=== PATIENT | male | born 1970 | race African-American/Black ===

== ENCOUNTER 2021-03-04 10:15 | Emergency (ER) | payer OTHER, SELFPAY ==
--- NOTE | ~2021-03-04 | XR_ITS ---
EXAMINATION: XR CHEST CLINICAL INFORMATION: Shortness of breath. History of PE. COMPARISON: No similar priors. TECHNIQUE: 2 views of the chest were obtained. FINDINGS: Normal appearance of the cardiomediastinal silhouette. Low lung volumes without focal airspace opacities, pleural effusions or pneumothorax. No acute osseous findings. The visualized upper abdomen is within normal limits. XR/XR chest 2V IMPRESSION: No acute cardiopulmonary findings.
--- NOTE | ~2021-03-04 | US_ITS ---
EXAMINATION: US VENOUS ULTRASOUND WITH DOPPLER LOWER EXTREMITY, RIGHT CLINICAL INFORMATION: History of cancer with right lower extremity edema and pain. COMPARISON: None. TECHNIQUE: Ultrasound of the deep veins is performed from the hip to the calf with compression sonography and color and pulse Doppler assessment. Spectral analysis with color-flow imaging is performed. FINDINGS: There is normal venous compression and respiratory variation and augmented flow. The visualized common femoral vein, superficial femoral vein, profunda femoral vein, popliteal vein, and the trifurcation region shows no evidence of deep venous thrombosis. There is no significant popliteal fossa cyst. If the patient's symptoms persist, followup ultrasound in 5 days 7 days might be of value to exclude proximal propagation from a non-visualized calf vein. US/US venous duplex LE RT IMPRESSION: No DVT demonstrated in the right lower extremity.
--- NOTE | ~2021-03-04 | CT_ITS ---
EXAMINATION: CT HEAD WITHOUT CONTRAST CT NECK WITHOUT CONTRAST CLINICAL INFORMATION: History of carcinoma. Tongue lesion. Difficulty swallowing. COMPARISON: No relevant prior imaging. TECHNIQUE: Packager Hand images were obtained. CT imaging of the head and neck was performed without contrast. Data was reformatted into multiplanar images at the acquisition workstation. This CT examination was performed using dose optimization techniques as appropriate, including one or more of the following: Automated exposure control, iterative reconstruction, and adjustment of technique factors (mA and/or kVp) according to patient size (this includes techniques or standardized protocols for targeted exams where dose is matched to indication/reason for exam). DLP: 1785 mGy-cm. (Including abdomen and pelvis) FINDINGS: Head: There is no acute intracranial hemorrhage or abnormal extra-axial collection. No intracranial mass effect or midline shift. Lateral and third ventricles are normal. No hydrocephalus. Conde-white matter differentiation is preserved and there is no evidence of acute territorial infarct. The calvarium and skull base are intact. Mastoid air cells and middle ear cavities are well aerated. Neck: The diagnostic accuracy of this component of the examination is limited due to the absence of intravenous contrast. There are no pathologically enlarged cervical lymph nodes. No mediastinal or axillary adenopathy is visualized within the [id number] of this examination. Pharyngeal mucosal spaces are symmetric. Parapharyngeal and retromaxillary fat is preserved. Oil Pumper spaces are normal. The parotid and submandibular glands are normal. The tongue base and epiglottis are normal. Preepiglottic fat is preserved. Glottic and subglottic airways are patent. The thyroid gland is normal and the remainder of the visualized visceral soft tissues are normal. Lung apices are clear. Aortic arch apex is unremarkable. Carotid spaces are unremarkable. There is no acute osseous finding. There is a well marginated expansile cystic lesion at the posterior aspect of the right maxillary alveolar process that bulges into the right maxillary sinus best depicted on sagittal image 84 of 134 series 4 measuring up to 3.8 cm in maximal craniocaudal dimension. Otherwise no worrisome lytic or blastic osseous lesion. Multilevel degenerative spondylosis of the cervical spine is noted. CT/CT soft tissue neck wo con IMPRESSION: Head: Unremarkable. There is no intracranial mass effect or hydrocephalus. No evidence of acute territorial infarct or hemorrhage. Neck: This component of the examination is limited due to the absence of intravenous contrast. No identifiable tongue mass. No pathologically enlarged cervical lymph nodes. There is a well marginated expansile cystic lesion involving the posterior aspect of the right maxillary alveolar process that bulges into the right maxillary sinus. This finding most likely represents a residual cyst from an extracted maxillary molar. Other possible cystic maxillary lesions however cannot be definitively excluded.
--- NOTE | ~2021-03-04 | CT_ITS ---
EXAMINATION: CT ABDOMEN AND PELVIS WITHOUT CONTRAST CLINICAL INFORMATION: History of cancer. Elevated LFTs. COMPARISON: CT abdomen/pelvis dated from 03/21/2018. TECHNIQUE: Multidetector volumetric imaging was performed from the superior aspect of the liver through the pubic symphysis. Sagittal and coronal reformatted images were obtained on the technologist's workstation. This CT examination was performed using dose optimization techniques as appropriate, variously including the following: *Automated exposure control *Adjustment of mA and/or kV according to patient size (this includes techniques or standardized protocols for targeted exams where dose is matched to indication/reason for exam; i.e. extremities or head) *Use of iterative reconstruction technique DLP: 612 mGy-cm FINDINGS: LUNG BASES: Dependent atelectases. No focal airspace opacity or pleural effusion. LIVER, GALLBLADDER, AND BILIARY TREE: There is marked hepatic steatosis. There are no focal liver abnormalities. There is no biliary ductal dilatation. The gallbladder is decompressed and therefore suboptimally evaluated. However, there is no evidence of pericholecystic free fluid or inflammatory changes to suspect acute cholecystitis. PANCREAS: No focal abnormalities. The main pancreatic duct is nondilated. SPLEEN: Unremarkable. ADRENAL GLANDS: Unremarkable. KIDNEYS AND URETERS: The kidneys are normal in size, shape, and attenuation. There is a very subtle hypodensity in the medial surface of the lower pole the right kidney (93:5) without change since 2018. No hydronephrosis, hydroureter, or calculi seen. No perinephric stranding. BLADDER: Unremarkable. GASTROINTESTINAL TRACT: Postsurgical changes are again noted following gastric bypass with partial gastrectomy and resection of the first portion of the duodenum. A gastrojejunostomy and jejunojejunostomy are identified. Additional surgical anastomosis is identified in the right upper abdomen. There is no evidence of bowel obstruction or active inflammatory bowel changes. The appendix is unremarkable. ABDOMINAL WALL: Midline surgical scarring. No significant hernia. LYMPH NODES: Prominent periportal, mesenteric and retroperitoneal lymph nodes are not significantly changed since 2018. Mild mesenteric haziness in the root of the mesentery within the upper abdomen is also stable since 2018 and of uncertain clinical significance. No lymphadenopathy by size criteria. Slightly prominent bilateral inguinal lymph nodes are likely reactive. VASCULAR: Scattered atherosclerotic disease of the abdominal aorta. No aneurysm. PELVIC VISCERA: Unremarkable. OSSEOUS STRUCTURES: No acute or aggressive osseous abnormalities. Compression deformity at T9 and T10 are stable. CT/CT abdomen pelvis wo con IMPRESSION: Interval developing of marked hepatic steatosis. Otherwise, this examination remains stable since 2018.
--- NOTE | ~2021-03-04 | CT_ITS ---
EXAMINATION: CT HEAD WITHOUT CONTRAST CT NECK WITHOUT CONTRAST CLINICAL INFORMATION: History of carcinoma. Tongue lesion. Difficulty swallowing. COMPARISON: No relevant prior imaging. TECHNIQUE: Safety Relief Valve Technician images were obtained. CT imaging of the head and neck was performed without contrast. Data was reformatted into multiplanar images at the acquisition workstation. This CT examination was performed using dose optimization techniques as appropriate, including one or more of the following: Automated exposure control, iterative reconstruction, and adjustment of technique factors (mA and/or kVp) according to patient size (this includes techniques or standardized protocols for targeted exams where dose is matched to indication/reason for exam). DLP: 1785 mGy-cm. (Including abdomen and pelvis) FINDINGS: Head: There is no acute intracranial hemorrhage or abnormal extra-axial collection. No intracranial mass effect or midline shift. Lateral and third ventricles are normal. No hydrocephalus. Conde-white matter differentiation is preserved and there is no evidence of acute territorial infarct. The calvarium and skull base are intact. Mastoid air cells and middle ear cavities are well aerated. Neck: The diagnostic accuracy of this component of the examination is limited due to the absence of intravenous contrast. There are no pathologically enlarged cervical lymph nodes. No mediastinal or axillary adenopathy is visualized within the [id number] of this examination. Pharyngeal mucosal spaces are symmetric. Parapharyngeal and retromaxillary fat is preserved. Photographic Equipment Mechanic spaces are normal. The parotid and submandibular glands are normal. The tongue base and epiglottis are normal. Preepiglottic fat is preserved. Glottic and subglottic airways are patent. The thyroid gland is normal and the remainder of the visualized visceral soft tissues are normal. Lung apices are clear. Aortic arch apex is unremarkable. Carotid spaces are unremarkable. There is no acute osseous finding. There is a well marginated expansile cystic lesion at the posterior aspect of the right maxillary alveolar process that bulges into the right maxillary sinus best depicted on sagittal image 84 of 134 series 4 measuring up to 3.8 cm in maximal craniocaudal dimension. Otherwise no worrisome lytic or blastic osseous lesion. Multilevel degenerative spondylosis of the cervical spine is noted. CT/CT head/brain wo con IMPRESSION: Head: Unremarkable. There is no intracranial mass effect or hydrocephalus. No evidence of acute territorial infarct or hemorrhage. Neck: This component of the examination is limited due to the absence of intravenous contrast. No identifiable tongue mass. No pathologically enlarged cervical lymph nodes. There is a well marginated expansile cystic lesion involving the posterior aspect of the right maxillary alveolar process that bulges into the right maxillary sinus. This finding most likely represents a residual cyst from an extracted maxillary molar. Other possible cystic maxillary lesions however cannot be definitively excluded.
--- NOTE | ~2021-03-04 | NM_ITS ---
EXAMINATION: NM LUNG IMAGE PERFUSION CLINICAL INFORMATION: Shortness of breath. History of pulmonary embolism. COMPARISON: Chest x-ray March 04, 2021 TECHNIQUE: 4 mCi of technetium 99m MAA was given. Multiple images obtained of the lung. FINDINGS: There is homogeneous perfusion of the right and left lungs. No defect. No evidence of pulmonary embolism. NM/NM pul perfusion IMPRESSION: Normal perfusion scan of lungs. No pulmonary embolism.
[2021-03-04 10:53] VITALS: BP 183/102; PULSE 85; RESP 18; TEMP 37; O2SAT 99; BMI 30.7
[2021-03-04 12:41] LABS: MANUAL DIFF FLAG NO
[2021-03-04 12:45] LABS: Appearance Urine HAZY; Color Urine YELLOW; Glucose Urine UA NEG (NEG); Leukocyte Esterase Urine NEG (NEG); Nitrite Urine NEG (NEG); Specific Gravity - Urine 1.025 (1.005-1.025); Urine Blood NEG (NEG); Urine Ketones NEG (NEG); Urine Protein NEG (NEG-TRACE)
[2021-03-04 12:45] LABS: Basophils Percent Auto 0.6 % (0-2); Eosinophils Absolute Auto 0.1 X10*3/uL (0.0-0.4); Hematocrit 39.7 % (42-52); Hemoglobin 12.9 g/dl (14.0-18.0); Imm Gran Abs Auto 0.03 X10*3/uL (0.00-0.03); Imm Gran Pct Auto 0.5 % (0.0-0.4); Lymphocytes Absolute Auto 2.2 X10*3/uL (1.2-4.9); Lymphocytes Percent Auto 34.7 % (20-40); Mean Corpuscular HGB Conc 32.5 g/dl (31.0-36.0); Mean Corpuscular Hemoglobin 31.2 pg (27.0-33.0); Mean Corpuscular Volume 96.1 fL (80-98); Mean Platelet Volume 9.1 fL (9.4-12.4); Monocytes Absolute Auto 0.5 X10*3/uL (0.1-1.2); Monocytes Percent Auto 7.9 % (2-11); Neutrophils Absolute Auto 3.5 X10*3/uL (2.0-8.3); Neutrophils Percent Auto 54.3 % (45-73); Platelet Count 197 X10*3/uL (160-400); Red Blood Count 4.13 X10*6/uL (4.60-5.80); Red Cell Distribution Width 12.6 % (11.0-16.0); White Blood Count 6.4 X10*3/uL (4.8-10.8)
[2021-03-04 12:56] LABS: COVID-19 Test Negative (Negative)
[2021-03-04 13:02] LABS: WBC Urine 0-2 /HPF (0-4)
[2021-03-04 13:03] LABS: Mucus Urine 1+ /LPF; RBC Urine 0-2 /HPF (0)
[2021-03-04 13:22] LABS: Alanine Aminotransferase 173 U/L (0-40); Albumin Level 4.3 g/dL (3.5-5.0); Alkaline Phosphatase 110 U/L (39-117); Anion Gap 14 (12-20); Aspartate Amino Transferase 254 U/L (5-37); Bilirubin Total 0.6 mg/dL (0.0-1.0); Blood Urea Nitrogen 7 mg/dL (9-16); Calcium 10.3 mg/dL (8.4-10.2); Carbon Dioxide 26 mmol/L (22-29); Chloride 108 mmol/L (96-108); Creatinine Clr Calc Pharmacy 99.5; Estimated Glomerular Filt Rate > 60; Glucose Random 114 mg/dL (60-115); Potassium 4.8 mmol/L (3.3-5.1); Sodium 143 mmol/L (135-145); Total Protein 6.7 g/dL (6.5-8.0)
--- NOTE | 2021-03-04 14:16 | ED_ITS ---
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 status post multiple surgeries to the intestines which include but not limited to bilroth II, partial gastrectomy who last had surgery/radiation and chemo in 2014 being followed by Oncology at [facility], history of a PE not on any anticoagulation for 2 years, right retinal detachment, glaucoma, epidural lipomatosis, spinal stenosis of lumbar sacral region and chronic left leg weakness presenting to the ED with complaints of discoloration blue/black li on his tongue/gums and under his tongue that he noticed approximately 2 weeks ago with associated difficulty swallowing has only been drinking liquids and feels like even trucks with liquids. He reports he feels like he has a lump in the right aspect of his neck. He also reports intermittent headaches that have increased over the past 2 weeks at the left frontal/parietal aspect of the scalp. He reports they are pressure in sensation. He also reports of shortness of breath along with burning in his chest. Patient reports he smokes approximately 4-5 cigarettes a day. Reports that he used to smoke 1 pack of cigarettes daily but cut down approximately 2-3 years ago. He denies any dizziness, dyspnea on exertion, orthopnea, cough, palpitations, abdominal pain, back pain, dysuria, hematuria, focal weakness or any weakness, rashes, recent travel or sick contacts or any other symptoms complaints or concerns at this time. MD complaint: Multiple complaints Related Data Previous Rx's Medication Instructions Recorded amoxicillin 875 mg-potassium 1 tab PO BID 10 Days #20 tab 03/04/21 clavulanate 125 mg tablet (Augmentin) oxycodone 5 mg tablet 5 mg PO Q6H PRN #14 tab 03/04/21 Allergies Allergy/AdvReac Type Severity Reaction Status Date / Time shellfish derived Allergy Severe SOB,HIVES Verified 03/04/21 10:52 [SHELLFISH DERIVED] aspirin [ASPIRIN] Allergy Unknown GI BLEED Verified 03/04/21 10:52 ibuprofen [IBUPROFEN] Allergy Unknown UNK Verified 03/04/21 10:52 iodine [IODINE] Allergy Unknown UNKNOWN Verified 03/04/21 10:52 metoclopramide [From REGLAN] Allergy Unknown AGITATION Verified 03/04/21 10:52 morphine [MORPHINE] Allergy Unknown AGITATION, Verified 03/04/21 10:52 anxiety IVP Dye Allergy Unknown rash Uncoded 06/07/17 00:00 IVP-DYE Allergy Unknown UNKNOWN Uncoded 02/27/20 18:51 Review of Systems Review of Systems: Constitutional : No Weight loss, No Fever, No Chills, No Night Sweats, No Fatigue, No Malaise ENT/Mouth : Positive trouble swallowing, positive sensation of something in his neck/throat right-sided, positive discolorations of his lips/tongue and gums, No Hearing loss, No Ear Pain, No Nasal Congestion, No Sinus Pain, No Hoarseness, No sore throat, No Rhinorrhea Eyes: Patient has chronic vision changes due to glaucoma/retinal detachment being followed by Ophthalmology at this time no new visual changes, No Eye Pain, No Swelling, No Redness, No Foreign Body, No Discharge Cardiovascular : Positive shortness of breath/chest burning sensation, No Dyspnea on Exertion, No Orthopnea, No Edema, No Palpitations Respiratory : No Cough, No Sputum, No Wheezing, No Smoke Exposure, No Dyspnea Gastrointestinal : No Nausea, No Vomiting, No Diarrhea, No Constipation, No abdominal Pain, No Hematochezia, No Melena Genitourinary : no irregular bleeding, No Dysuria, No Urinary Frequency, No Hematuria, No Urinary Incontinence, No Urgency, No Flank Pain, No Urinary Flow Changes, No Hesitancy Musculoskeletal : No joint pain, No Myalgias, No Joint Swelling Skin : No Skin Lesions, No rash Neuro : No Weakness, No Numbness, No Paresthesias, No Loss of Consciousness, No Dizziness, No Headache Psych : No Anxiety/Panic, No Depression, No SI/HI/AH/VH, No Social Issues, Heme/Lymph: No Bruising, No Bleeding,No Lymphadenopathy Endocrine : No Polyuria, No Polydipsia, No Temperature Intolerance Yes all other systems are reviewed and are negative [facility] Past Medical History Attestation statement: The following information was validated with the patient. Medical History Detached retina Seizure Social History Social History Advance Directives: No Advance Directives Information Provided: No Physical Exam Vital Signs: Vital Signs: Last Vital Signs Temp 98.6 F 03/04/21 10:53 Pulse 88 03/04/21 15:43 Resp 18 03/04/21 15:43 BP 162/98 H 03/04/21 15:43 Pulse Ox 96 03/04/21 15:43 Body Mass Index 30.7 vital signs have been reviewed as normal and appeared to be correct. Blood pressure hypertensive 183/102 Heart rate normal. Respiration rate normal. Temperature normal. Oxygen saturation normal. Appearance: Alert. Oriented X3. No acute distress. Head: Normal external exam. Normocephalic. Atraumatic. Eyes: PERRLA. EOMI. Conjunctiva and sclera normal. Eyelids normal. ENT: To the lips/gums/tongue and posterior pharynx patient has black discolorations noted and under the tongue although no obvious masses are noted. The rest of the Pharynx is normal. Uvula midline. Moist mucous membranes. No trismus noted. No drooling noted. No muffled voice noted. No stridor noted. Patient is tolerating secretions well on my exam. Neck: Normal inspection. Neck supple. FROM. No adenopathy. Thyroid Normal. No meningeal signs. No neck mass noted on my exam. CVS: Normal heart rate and rhythm. Heart sound normal. Pulses normal throughout. No murmurs/rales/gallops. Respiratory: No respiratory distress. Painless inspiration. Breath sounds normal. No wheezes/rales/rhonchi noted. Chest nontender. No accessory muscle usage noted or decreased air movement noted. Abdomen: Soft and nontender. Bowel sounds normal in all 4 quadrants. No distention noted. No organomegaly noted. No visible injury noted. Patient has multiple old healed scars on his abdomen from multiple abdominal surgeries. Back: No CVA tenderness. Full range of motion noted. No rashes/lesion/i nduration/fluctuance or signs of infection noted. Skin: Skin warm and dry. Normal skin color. Normal skin turgor. No rashes/lesions/lacerations noted. Extremities: Patient has tenderness palpation to the right groin/leg/posterior knee and calf. No obvious lower extremity edema is noted. No calf tenderness or edema noted to the left extremity. Extremities exhibit normal range of motion. Extremities nontender. Neuro: Oriented X 3. No motor deficit. No sensory deficit. Reflexes normal. Normal steady gait. No focal neuro deficits noted. Vascular: + radial pulses/+ 2 distal pedal pulses/+2 dorsalis pedis b/l. Normal cap refill. No cyanosis noted to upper extremity nails and lower extremity toes nails. 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 status post multiple surgeries to the intestines which include but not limited to bilroth II, partial gastrectomy who last had surgery/radiation and chemo in 2015 being followed by Oncology at [facility], history of a PE not on any anticoagulation for 2 years, right retinal detachment, glaucoma, epidural lipomatosis, spinal stenosis of lumbar sacral region and chronic left leg weakness presenting to the ED with complaints of discoloration blue/black li on his tongue/gums and under his tongue that he noticed approximately 2 weeks ago with associated difficulty swallowing has only been drinking liquids and feels like even trucks with liquids. He reports he feels like he has a lump in the right aspect of his neck. He also reports intermittent headaches that have increased over the past 2 weeks at the left fro ntal/parietal aspect of the scalp. He reports they are pressure in sensation. He also reports of shortness of breath along with burning in his chest. Plan: Labs, CT scan of brain, CT scan of soft tissue neck to evaluate for any masses, CT scan abdomen pelvis without IV contrast, V/Q scan of chest to evaluate for possible new PE patient is allergic to iodine ultrasound of right lower extremity to evaluate for possible DVT an EKG then re-evaluate. Reevaluation(s) Reevaluation #1: - patient with mild baseline anemia. Calcium 10.3. AST/ALT 254/173. CRP 0.72. Otherwise all other labs are within normal limits. UA wit hin normal limits no evidence of UTI. COVID is negative. - CT scan of head within normal limits no acute processes are noted. CT scan of neck without contrast due to patient allergic revealed a cyst to the right maxillary sinus otherwise no other acute processes were noted. - CT scan abdomen pelvis with IV contrast due to patient's allergic revealed interval developing of marked hepatic steatosis otherwise no other acute processes stable since 2018 - CXR WNL no acute processes were noted. - V/Q scan normal no evidence of pulmonary embolism. - right lower extremity ultrasound negative for DVT or any other acute processes. - EKG is normal sinus rhythm with incomplete right bundle branch block no acute ischemic changes are noted. The right bundle-branch block was not present in 01/31/2017 although patient troponin is within normal limits. - therefore printed out a copy of all the patient's results and handed to the patient instructed him to follow-up with ENT to evaluate his tongue disco lorations will DC home with antibiotics for possible gum infection. Along with symptomatic treatment for his pain to his right leg instructions return if any new or worsening symptoms to follow up with PCP/oncologist/puppet master. Patient understands agrees with this plan. Time: 17:32 Medical Decision Making Medical Records Medical records reviewed: Yes I reviewed the patient's medical records. Lab Data Lab results reviewed: Yes I reviewed the patient's lab results. Result diagrams: 03/04/21 12:15 03/04/21 12:15 Labs: Lab Results 03/04/21 03/04/21 03/04/21 Range/Units 12:15 12:15 12:26 WBC 6.4 (4.8-10.8) X10*3/uL RBC 4.13 L (4.60-5.80) X10*6/uL Hgb 12.9 L (14.0-18.0) g/dl Hct 39.7 L (42-52) % MCV 96.1 (80-98) fL MCH 31.2 (27.0-33.0) pg MCHC 32.5 (31.0-36.0) g/dl RDW 12.6 (11.0-16.0) % Plt Count 197 (160-400) X10*3/uL MPV 9.1 L (9.4-12.4) fL Immature Gran % (Auto) 0.5 H (0.0-0.4) % Neut % (Auto) 54.3 (45-73) % Lymph % (Auto) 34.7 (20-40) % Freestone % (Auto) 7.9 (2-11) % Eos % (Auto) 2.0 (0-4) % Baso % (Auto) 0.6 (0-2) % Lymph # (Auto) 2.2 (1.2-4.9) X10*3/uL [place] # (Auto) 0.5 (0.1-1.2) X10*3/uL Eos # (Auto) 0.1 (0.0-0.4) X10*3/uL Baso # (Auto) 0.0 (0.0-0.2) X10*3/uL Abs Immat Gran (auto) 0.03 (0.00-0.03) X10*3/uL Absolute Neuts (auto) 3.5 (2.0-8.3) X10*3/uL Absolute Nucleated RBC 0.000 (0.0-0.012) X10*3/uL Nucleated RBC % (auto) 0.0 (0.0-0.2) /100WBC ESR (0-15) MM/HR Hold Purple Top Sodium 143 (135-145) mmol/L Potassium 4.8 (3.3-5.1) mmol/L Chloride 108 (96-108) mmol/L Carbon Dioxide 26 (22-29) mmol/L Anion Gap 14 (12-20) BUN 7 L (9-16) mg/dL Creatinine 1.08 (0.5-1.4) mg/dL Estim Creat Clear Calc 99.5 Estimated GFR > 60 Random Glucose 114 (60-115) mg/dL Calcium 10.3 H (8.4-10.2) mg/dL Total Bilirubin 0.6 (0.0-1.0) mg/dL AST 254 H (5-37) U/L ALT 173 H (0-40) U/L Alkaline Phosphatase 110 (39-117) U/L Total Creatine Kinase 131 (38-174) U/L Troponin I High Sens (<3.5-35.0) ng/L C-Reactive Protein 0.72 H (< or = 0.50) mg/dL Total Protein 6.7 (6.5-8.0) g/dL Albumin 4.3 (3.5-5.0) g/dL TSH 0.97 (0.32-4.0) uIU/mL Urine Color Urine Appearance Urine pH (5.0-8.0) Ur Specific [place] (1.005-1.025) Urine Protein (NEG-TRACE) MG/DL Urine Glucose (UA) (NEG) MG/DL Urine Ketones (NEG) MG/DL Urine Blood (NEG) Urine Nitrite (NEG) Ur Leukocyte Esterase (NEG) Urine RBC (0) /HPF Urine WBC (0-4) /HPF Ur Squamous Epith Cells /LPF Urine Bacteria /LPF Urine Mucus /LPF COVID-19 (MARIZA) Negative (Negative) COVID-19 Clin Com See Note 03/04/21 03/04/21 03/04/21 Range/Units 12:26 12:38 13:25 WBC (4.8-10.8) X10*3/uL RBC (4.60-5.80) X10*6/uL Hgb (14.0-18.0) g/dl Hct (42-52) % MCV (80-98) fL MCH (27.0-33.0) pg MCHC (31.0-36.0) g/dl RDW (11.0-16.0) % Plt Count (160-400) X10*3/uL MPV (9.4-12.4) fL Immature Gran % (Auto) (0.0-0.4) % Neut % (Auto) (45-73) % Lymph % (Auto) (20-40) % Freestone % (Auto) (2-11) % Eos % (Auto) (0-4) % Baso % (Auto) (0-2) % Lymph # (Auto) (1.2-4.9) X10*3/uL Fre[place] # (Auto) (0.1-1.2) X10*3/uL Eos # (Auto) (0.0-0.4) X10*3/uL Baso # (Auto) (0.0-0.2) X10*3/uL Abs Immat Gran (auto) (0.00-0.03) X10*3/uL Absolute Neuts (auto) (2.0-8.3) X10*3/uL Absolute Nucleated RBC (0.0-0.012) X10*3/uL Nucleated RBC % (auto) (0.0-0.2) /100WBC ESR 3 (0-15) MM/HR Hold Purple Top SEE NOTE Sodium (135-145) mmol/L Potassium (3.3-5.1) mmol/L Chloride (96-108) mmol/L Carbon Dioxide (22-29) mmol/L Anion Gap (12-20) BUN (9-16) mg/dL Creatinine (0.5-1.4) mg/dL Estim Creat Clear Calc Estimated GFR Random Glucose (60-115) mg/dL Calcium (8.4-10.2) mg/dL Total Bilirubin (0.0-1.0) mg/dL AST (5-37) U/L ALT (0-40) U/L Alkaline Phosphatase (39-117) U/L Total Creatine Kinase (38-174) U/L Troponin I High Sens (<3.5-35.0) ng/L C-Reactive Protein (< or = 0.50) mg/dL Total Protein (6.5-8.0) g/dL Albumin (3.5-5.0) g/dL TSH (0.32-4.0) uIU/mL Urine Color YELLOW Urine Appearance HAZY Urine pH 6.0 (5.0-8.0) Ur Specific [place] 1.025 (1.005-1.025) Urine Protein NEG (NEG-TRACE) MG/DL Urine Glucose (UA) NEG (NEG) MG/DL Urine Ketones NEG (NEG) MG/DL Urine Blood NEG (NEG) Urine Nitrite NEG (NEG) Ur Leukocyte Esterase NEG (NEG) Urine RBC 0-2 (0) /HPF Urine WBC 0-2 (0-4) /HPF Ur Squamous Epith Cells NONE /LPF Urine Bacteria NONE /LPF Urine Mucus 1+ /LPF COVID-19 (MARIZA) (Negative) COVID-19 Clin Com 03/04/21 Range/Units 13:25 WBC (4.8-10.8) X10*3/uL RBC (4.60-5.80) X10*6/uL Hgb (14.0-18.0) g/dl Hct (42-52) % MCV (80-98) fL MCH (27.0-33.0) pg MCHC (31.0-36.0) g/dl RDW (11.0-16.0) % Plt Count (160-400) X10*3/uL MPV (9.4-12.4) fL Immature Gran % (Auto) (0.0-0.4) % Neut % (Auto) (45-73) % Lymph % (Auto) (20-40) % Fre[place] % (Auto) (2-11) % Eos % (Auto) (0-4) % Baso % (Auto) (0-2) % Lymph # (Auto) (1.2-4.9) X10*3/uL [place] # (Auto) (0.1-1.2) X10*3/uL Eos # (Auto) (0.0-0.4) X10*3/uL Baso # (Auto) (0.0-0.2) X10*3/uL Abs Immat Gran (auto) (0.00-0.03) X10*3/uL Absolute Neuts (auto) (2.0-8.3) X10*3/uL Absolute Nucleated RBC (0.0-0.012) X10*3/uL Nucleated RBC % (auto) (0.0-0.2) /100WBC ESR (0-15) MM/HR Hold Purple Top Sodium (135-145) mmol/L Potassium (3.3-5.1) mmol/L Chloride (96-108) mmol/L Carbon Dioxide (22-29) mmol/L Anion Gap (12-20) BUN (9-16) mg/dL Creatinine (0.5-1.4) mg/dL Estim Creat Clear Calc Estimated GFR Random Glucose (60-115) mg/dL Calcium (8.4-10.2) mg/dL Total Bilirubin (0.0-1.0) mg/dL AST (5-37) U/L ALT (0-40) U/L Alkaline Phosphatase (39-117) U/L Total Creatine Kinase (38-174) U/L Troponin I High Sens < 3.5 (<3.5-35.0) ng/L C-Reactive Protein (< or = 0.50) mg/dL Total Protein (6.5-8.0) g/dL Albumin (3.5-5.0) g/dL TSH (0.32-4.0) uIU/mL Urine Color Urine Appearance Urine pH (5.0-8.0) Ur Specific [place] (1.005-1.025) Urine Protein (NEG-TRACE) MG/DL Urine Glucose (UA) (NEG) MG/DL Urine Ketones (NEG) MG/DL Urine Blood (NEG) Urine Nitrite (NEG) Ur Leukocyte Esterase (NEG) Urine RBC (0) /HPF Urine WBC (0-4) /HPF Ur Squamous Epith Cells /LPF Urine Bacteria /LPF Urine Mucus /LPF COVID-19 (MARIZA) (Negative) COVID-19 Clin Com Imaging Data Chest x-ray: Attestation: I personally reviewed and interpreted this imaging study as follows: Radiologist's impression: FINDINGS: Normal appearance of the cardiomediastinal silhouette. Low lung volumes without focal airspace opacities, pleural effusions or pneumothorax. No acute osseous findings. The visualized upper abdomen is within normal limits. XR/XR chest 2V IMPRESSION: No acute cardiopulmonary findings. CT scan of brain/CT scan of soft tissue neck without contrast: Attestation: I personally reviewed and interpreted this imaging study as follows: Radiologist's impression: FINDINGS: Head: There is no acute intracranial hemorrhage or abnormal extra-axial collection. No intracranial mass effect or midline shift. Lateral and third ventricles are normal. No hydrocephalus. Conde-white matter differentiation is preserved and there is no evidence of acute territorial infarct. The calvarium and skull base are intact. Mastoid air cells and middle ear cavities are well aerated. Neck: The diagnostic accuracy of this component of the examination is limited due to the absence of intravenous contrast. There are no pathologically enlarged cervical lymph nodes. No mediastinal or axillary adenopathy is visualized within the [id number]-ri-rowf of this examination. Pharyngeal mucosal spaces are symmetric. Parapharyngeal and retromaxillary fat is preserved. Career Development Director spaces are normal. The parotid and submandibular glands are normal. The tongue base and epiglottis are normal. Preepiglottic fat is preserved. Glottic and subglottic airways are patent. The thyroid gland is normal and the remainder of the visualized visceral soft tissues are normal. Lung apices are clear. Aortic arch apex is unremarkable. Carotid spaces are unremarkable. There is no acute osseous finding. There is a well marginated expansile cystic lesion at the posterior aspect of the right maxillary alveolar process that bulges into the right maxillary sinus best depicted on sagittal image 84 of 134 series 4 measuring up to 3.8 cm in maximal craniocaudal dimension. Otherwise no worrisome lytic or blastic osseous lesion. Multilevel degenerative spondylosis of the cervical spine is noted. CT/CT soft tissue neck wo con IMPRESSION: Head: Unremarkable. There is no intracranial mass effect or hydrocephalus. No evidence of acute territorial infarct or hemorrhage. ? Neck: This component of the examination is limited due to the absence of intravenous contrast. No identifiable tongue mass. No pathologically enlarged cervical lymph nodes. There is a well marginated expansile cystic lesion involving the posterior aspect of the right maxillary alveolar process that bulges into the right maxillary sinus. This finding most likely represents a residual cyst from an extracted maxillary molar. Other possible cystic maxillary lesions however cannot be definitively excluded. CT scan abdomen pelvis without IV contrast: Attestation: I personally reviewed and interpreted this imaging study as follows: Radiologist's impression: FINDINGS: LUNG BASES: Dependent atelectases. No focal airspace opacity or pleural effusion.? LIVER, GALLBLADDER, AND BILIARY TREE: There is marked hepatic steatosis. There are no focal liver abnormalities. There is no biliary ductal dilatation. The gallbladder is decompressed and therefore suboptimally evaluated. However, there is no evidence of pericholecystic free fluid or inflammatory changes to suspect acute cholecystitis. PANCREAS: No focal abnormalities. The main pancreatic duct is nondilated.? SPLEEN: Unremarkable.? ADRENAL GLANDS: Unremarkable.? KIDNEYS AND URETERS: The kidneys are normal in size, shape, and attenuation. There is a very subtle hypodensity in the medial surface of the lower pole the right kidney (93:5) without change since 2018. No hydronephrosis, hydroureter, or calculi seen. No perinephric stranding. ? BLADDER: Unremarkable.? GASTROINTESTINAL TRACT: Postsurgical changes are again noted following gastric bypass with partial gastrectomy and resection of the first portion of the duodenum. A gastrojejunostomy and jejunojejunostomy are identified. Additional surgical anastomosis is identified in the right upper abdomen. There is no evidence of bowel obstruction or active inflammatory bowel changes. The appendix is unremarkable.? ABDOMINAL WALL: Midline surgical scarring. No significant hernia.? LYMPH NODES: Prominent periportal, mesenteric and retroperitoneal lymph nodes are not significantly changed since 2018. Mild mesenteric haziness in the root of the mesentery within the upper abdomen is also stable since 2018 and of uncertain clinical significance. No lymphadenopathy by size criteria. Slightly prominent bilateral inguinal lymph nodes are likely reactive. VASCULAR: Scattered atherosclerotic disease of the abdominal aorta. No aneurysm. PELVIC VISCERA: Unremarkable.? OSSEOUS STRUCTURES: No acute or aggressive osseous abnormalities. Compression deformity at T9 and T10 are stable.? CT/CT abdomen pelvis wo con IMPRESSION: Interval developing of marked hepatic steatosis. Otherwise, this examination remains stable since 2018.? Venous duplex ultrasound of right lower extremity: Attestation: I personally reviewed and interpreted this imaging study as follows: Radiologist's impression: FINDINGS: There is normal venous compression and respiratory variation and augmented flow. The visualized common femoral vein, superficial femoral vein, profunda femoral vein, popliteal vein, and the trifurcation region shows no evidence of deep venous thrombosis. ? There is no significant popliteal fossa cyst. If the patient's symptoms persist, followup ultrasound in 5 days 7 days might be of value to exclude proximal propagation from a non-visualized calf vein. US/US venous duplex LE RT IMPRESSION: No DVT demonstrated in the right lower extremity. Ventilation/perfusion scan: Attestation: I personally reviewed and interpreted this imaging study as follows: Radiologist's impression: FINDINGS: There is homogeneous perfusion of the right and left lungs. No defect. No evidence of pulmonary embolism. NM/NM pul perfusion IMPRESSION: Normal perfusion scan of lungs. No pulmonary embolism. ECG Data Attestation: I personally reviewed and interpreted this ECG as follows: Interpretation: EKG is normal sinus rhythm with ventricular rate of 73 with incomplete right bundle-branch block no acute ischemic changes are noted. The incomplete right bundle branch block is new since 01/31/2017. Critical Care Time Critical Care Time Critical Care Time: Yes Total Critical Care Time: 60 Attestation: I personally attest to this time spent taking care of the patient Discharge Plan Discharge Clinical Impression: Lesion of oral mucosa, Hepatic steatosis, Cyst of maxillary sinus Patient Disposition: Home, Self-Care Instructions: Non-Alcoholic Fatty Liver Disease (ED), Nasal Endoscopy (DC), Oral Lesion Excision (DC) Prescriptions: New amoxicillin-pot clavulanate [Augmentin] 875-125 mg tablet 1 tab PO BID 10 Days Qty: 20 RF: 0 oxycodone 5 mg tablet 5 mg PO Q6H PRN (Reason: pain) Qty: 14 RF: 0 Referrals: Herrera,Loi, MD [Primary Care Provider] - 2 days Jeremiah Lopez [Physician] - 2 days (Oral discoloration/lesions) Print Language: Bengali
[2021-03-04 14:53] LABS: Troponin-I High Sensitivity < 3.5 ng/L (<3.5-35.0)
--- NOTE | 2021-03-04 15:01 | ECG_ITS ---
Test Reason : CHEST PAIN Blood Pressure : / mmHG Vent. Rate : 073 BPM Atrial Rate : 073 BPM P-R Int : 166 ms QRS Dur : 118 ms QT Int : 388 ms P-R-T Axes : 050 068 026 degrees QTc Int : 427 ms Normal sinus rhythm Incomplete right bundle branch block Borderline ECG When compared with ECG of 31-JAN-2017 20:16, Incomplete right bundle branch block is now Present Referred By: Jo Cooper Electronically Signed By:MONIQUE GARCIA
[2021-03-04 15:18] LABS: C Reactive Protein 0.72 mg/dL (< or = 0.50)
[2021-03-04 15:43] VITALS: BP 162/98; PULSE 88; RESP 18; O2SAT 96
[2021-03-04 15:59] LABS: TSH reflex Free T4 0.97 uIU/mL (0.32-4.0)
[2021-03-04 16:29] LABS: Erythrocyte Sedimentation Rate 3 MM/HR (0-15)
== END 2021-03-04 18:10 | disposition home or self-care (01) ==
PROVIDERS: Physician Assistant Medical; Emergency Provider Emergency Medicine; PCP Internal Medicine
DX: K13.70 Unspecified lesions of oral mucosa (principal); K83.1 Obstruction of bile duct; J34.1 Cyst and mucocele of nose and nasal sinus; R06.02 Shortness of breath; M54.2 Cervicalgia; R07.89 Other chest pain; R51.9 Headache, unspecified; R60.0 Localized edema; R68.84 Jaw pain; Z20.822 Contact with and (suspected) exposure to COVID-19; Z79.899 Other long term (current) drug therapy
CPT/HCPCS: 36415; 70450; 70490; 71046; 74176; 78580; 80053; 81001; 82550; 84443; 84484; 85025; 85652; 86140; 87635; 93005; 93971; 99284; 99291; A9540

== ENCOUNTER 2022-03-16 07:19 | Day surgery (SDC) | payer OTHER, SELFPAY ==
[2022-03-11 09:32] VITALS: BMI 30.4
--- NOTE | 2022-03-15 12:30 | P.CONAN_ITS ---
Documented by User: Nicky Frey NP 03/15/22 12:33 HPI - Anesthesia Eval Consult details Narrative: 51yo M for Bilateral Eye Muscle Rectus Recession PCP Cleared [facility] Past Medical History Medical History Abdominal pain Atypical chest pain Detached retina Diverticulosis HTN (hypertension) Hx of malignant gastrointestinal stromal tumor (GIST) Hx SBO Hyperlipidemia Seizure SOB (shortness of breath) Surgical History Surgical History History of esophagogastroduodenoscopy (EGD) Hx of abdominal surgery Hx of colonoscopy Social History Social History Patient Tobacco Use Status: Current everyday Tobacco user Tobacco use type: Cigarette Cigarettes Per Day: 3 Use of substances other than those prescribed or required for medical reasons: No Are you DNR?: No Advance Directives: No Advance Directives Information Provided: Yes Meds Allergies Allergy/AdvReac Type Severity Reaction Status Date / Time shellfish derived Allergy Severe SOB,HIVES Verified 03/04/21 10:52 [SHELLFISH DERIVED] aspirin [ASPIRIN] Allergy Intermediate GI BLEED Verified 09/02/21 09:57 Iodinated Contrast Media Allergy Intermediate Rash Verified 09/02/21 09:57 [IV Contrast Dye] iodine [IODINE] Allergy Intermediate Hives Verified 09/02/21 10:22 metoclopramide [From REGLAN] Allergy Intermediate AGITATION Verified 09/02/21 09:57 morphine [MORPHINE] Allergy Intermediate AGITATION, Verified 09/02/21 09:57 anxiety ibuprofen [IBUPROFEN] Allergy Unknown UNK Verified 03/04/21 10:52 Home Medications Medication Instructions Recorded Confirmed Last Taken Type amlodipine 10 mg tablet 1 tab PO DAILY 03/11/22 03/11/22 Unknown History cholestyramine (with sugar) 4 gram 1 packet PO QID 03/11/22 03/11/22 Unknown History powder for susp in a packet latanoprost 0.005 % eye drops 1 drp ophthalmic-Right BEDTIME 03/11/22 03/11/22 Unknown History lisinopril 40 mg tablet 1 tab PO DAILY 03/11/22 03/11/22 Unknown History nortriptyline 25 mg capsule 1 cap PO BEDTIME 03/11/22 03/11/22 Unknown History omeprazole 40 mg capsule,delayed 1 cap PO DAILY 03/11/22 03/11/22 Unknown History release sucralfate 100 mg/mL oral 10 ml PO BID 03/11/22 03/11/22 Unknown History suspension timolol maleate 0.5 % eye drops 1 drp ophthalmic-Right BID 03/11/22 03/11/22 Unknown History Exam Exam Date and Time: March 15, 2022 1230 Height,Weight and Vital Signs: Height 5 ft 11 in Weight 98.883 kg Pertinent Lab Results Pertinent Lab Results: 02/03/22 CBC, BMP, PT/INR from outside facility all WNL Narrative Narrative: Per clearance note 02/22/22: EKG WNL Stress ECHO 10/2021 WNL Assessment and Plan Assessment Anesthesia Assessment: Chart Reviewed Documented by User: Israel Chun MD 03/16/22 09:46 PMFSH Past Medical History Medical History Abdominal pain Atypical chest pain Detached retina Diverticulosis HTN (hypertension) Hx of malignant gastrointestinal stromal tumor (GIST) Hx SBO Hyperlipidemia Seizure SOB (shortness of breath) Family History Family history of problems with anesthesia: No Surgical History Surgical History History of esophagogastroduodenoscopy (EGD) Hx of abdominal surgery Hx of colonoscopy History of Problems with Anesthesia: No Social History Social History Patient Tobacco Use Status: Current everyday Tobacco user Tobacco use type: Cigarette Cigarettes Per Day: 3 Use of substances other than those prescribed or required for medical reasons: No Are you DNR?: No Advance Directives: No Advance Directives Information Provided: Yes Meds Allergies Allergy/AdvReac Type Severity Reaction Status Date / Time shellfish derived Allergy Severe SOB,HIVES Verified 03/04/21 10:52 [SHELLFISH DERIVED] aspirin [ASPIRIN] Allergy Intermediate GI BLEED Verified 09/02/21 09:57 Iodinated Contrast Media Allergy Intermediate Rash Verified 09/02/21 09:57 [IV Contrast Dye] iodine [IODINE] Allergy Intermediate Hives Verified 09/02/21 10:22 metoclopramide [From REGLAN] Allergy Intermediate AGITATION Verified 09/02/21 09:57 morphine [MORPHINE] Allergy Intermediate AGITATION, Verified 09/02/21 09:57 anxiety ibuprofen [IBUPROFEN] Allergy Unknown UNK Verified 03/04/21 10:52 Home Medications Medication Instructions Recorded Confirmed Last Taken Type amlodipine 10 mg tablet 1 tab PO DAILY 03/11/22 03/11/22 Unknown History cholestyramine (with sugar) 4 gram 1 packet PO QID 03/11/22 03/11/22 Unknown History powder for susp in a packet latanoprost 0.005 % eye drops 1 drp ophthalmic-Right BEDTIME 03/11/22 03/11/22 Unknown History lisinopril 40 mg tablet 1 tab PO DAILY 03/11/22 03/11/22 Unknown History nortriptyline 25 mg capsule 1 cap PO BEDTIME 03/11/22 03/11/22 Unknown History omeprazole 40 mg capsule,delayed 1 cap PO DAILY 03/11/22 03/11/22 Unknown History release sucralfate 100 mg/mL oral 10 ml PO BID 03/11/22 03/11/22 Unknown History suspension timolol maleate 0.5 % eye drops 1 drp ophthalmic-Right BID 03/11/22 03/11/22 Unknown History Exam Airway Mallampati Class: III TM Dist: >3cm Neck ROM: Full Heart: rrr Lungs: clear Assessment and Plan Final Anesthetic Review Family History of Problems with Anesthesia: No History of Problems with Anesthesia: No NPO: Yes ASA Class: II Final Preanesthetic Review: No Changes in Pt Med Stat, Meds/Allgs Chart Reviewed, Consent Obtained/Reviewed and Anes Risks/Benef Reviewed Patient Risk: Intermediate Procedure Risk: Low Anesthetic Plan Anesthetic Plan: GA Disposition: Standard PACU
[2022-03-16] VITALS (13 sets, daily range): BP systolic 159–190; BP diastolic 93–109; PULSE 93–108; RESP 16–23; TEMP 36.4–37.3; O2SAT 94–99; BMI 29.5
[2022-03-16] MEDS: Lactated Ringers 1,000 ML 100 ML IVCONT (08:45)
[2022-03-16] MEDS: oxyCODONE HCl Immed Release 5 MG TABLET PO (11:12)
[2022-03-16] MEDS: Acetaminophen 325 MG TABLET 650 MG PO (11:12)
[2022-03-16] MEDS: fentaNYL citrate/PF 100 MCG/2 ML VIAL 25 MCG IVPUSH ×3 (11:13→11:44)
--- NOTE | 2022-03-16 12:25 | P.OPHTHAL_ITS ---
Ophthalmology Operative Note Date of Service: 03/16/22 Narrative: Diagnosis exotropia. Procedures 1. Resection of right medial rectus muscle 6 mm. 2. Recession of right lateral rectus muscle [address] Hall. Anesthesia general. Complications none. The patient was brought to the operating room placed under general anesthesia. The patient's eyes were prepped and draped in the usual sterile ophthalmic fashion. A lid speculum was placed in the right eye and then incisions made at bare sclera in the inferotemporal fornix. The lateral rectus muscle was hooked and secured with a double-armed Vicryl suture. The muscle was then disinserted from the globe and reattached to a position 8 mm behind the original insertion. Conjunctiva was closed with interrupted Vicryl sutures. An incision was made at bare sclera in the inferior nasal fornix. The medial rectus muscle was hooked and dissected free of its overlying fascial attachments. It was grasped at the insertion with a Randolph muscle clamp and a 6 mm resection was marked off with cautery. The resection point was secured with a double-armed Vicryl suture in the distal muscle resected. The resection point was then drawn forward to the original insertion using the Vicryl suture. Conjunctiva was closed with interrupted Vicryl sutures. The patient was then awoken from general anesthesia and discharged to postoperative recovery in good condition.
== END 2022-03-16 13:12 | disposition home or self-care (01) ==
PROVIDERS: PCP Internal Medicine; Visit Provider Ophthalmology
PROC: (CPT 67312; principal; 2022-03-16 09:00)
DX: H50.10 Unspecified exotropia (principal); H53.2 Diplopia; I10 Essential (primary) hypertension; E78.1 Pure hyperglyceridemia; R06.02 Shortness of breath; Z79.899 Other long term (current) drug therapy; Z91.041 Radiographic dye allergy status; Z88.8 Allergy status to other drugs, medicaments and biological substances; F17.210 Nicotine dependence, cigarettes, uncomplicated
CPT/HCPCS: 67312; J0461; J1100; J2250; J2405; J3010